=== PATIENT | male | born 1975 | race Caucasian/White ===

== ENCOUNTER 2018-12-14 18:26 | Observation (INO) | payer OTHER ==
[2018-12-14 21:02] LABS: Basophils # (A) 0.1 k/uL (0-0.2); Basophils % (A) 1 %; Eosinophils # (A) 0.4 k/uL (0-0.7); Eosinophils % (A) 4 %; HCT 42.2 % (39.0-53.0); HGB 13.4 gm/dL (13.0-17.5); Lymphocytes # (A) 2.1 k/uL (1.0-4.8); Lymphocytes % (A) 20 %; MCH 27.9 pg (25.0-35.0); MCHC 31.8 g/dL (31.0-37.0); MCV 87.9 fL (80.0-100.0); Mean Platelet Volume 6.6; Monocytes # (A) 0.6 k/uL (0-1.0); Monocytes % (A) 6 %; Neutrophils # (A) 7.3 k/uL (1.3-7.7); Neutrophils % (A) 68 %; Platelet Count 238 k/uL (150-450); RDW 14.1 % (11.5-15.5); WBC 10.8 k/uL (3.8-10.6)
[2018-12-14 21:11] LABS: INR 0.9 (<1.2); Partial Thromboplastin Time 24.9 sec (22.0-30.0); Prothrombin Time 9.5 sec (9.0-12.0)
[2018-12-14 21:14] LABS: African American GFR (CKD) >90 (>60 ml/min/1.73 sqM); Anion Gap 11 mmol/L; Blood Urea Nitrogen 21 mg/dL (9-20); Calcium 9.4 mg/dL (8.4-10.2); Carbon Dioxide 26 mmol/L (22-30); Chloride 103 mmol/L (98-107); Glucose 99 mg/dL (74-99); Potassium 4.5 mmol/L (3.5-5.1); Sodium 140 mmol/L (137-145)
--- NOTE | 2018-12-14 21:43 | US ---
EXAMINATION TYPE: US venous doppler duplex LE LT DATE OF EXAM: 12/14/2018 8:27 PM COMPARISON: NONE CLINICAL HISTORY: hx DVT/calf swelling pain. SIDE PERFORMED: Left TECHNIQUE: The lower extremity deep venous system is examined utilizing real time linear array sonog soren with graded compression, doppler sonography and color-flow sonography. VESSELS IMAGED: External Iliac Vein (EIV) Common Femoral Vein Deep Femoral Vein Greater Saphenous Vein * Femoral Vein Popliteal Vein Small Saphenous Vein * Proximal Calf Veins (* superficial vessels) Left Leg: Positive for DVT starting at the proximal femoral vein and extending through the calf vein s. IMPRESSION: There is acute deep venous thrombosis in the femoral vein extending into the popliteal an d calf veins.
--- NOTE | 2018-12-14 21:47 | ED ---
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 Patinet states 3 days ago he had calf swelling, pain that fel like a emerita horse in the left posterior calf. Patient states the swelling increased after riding in a vehicle for 9 hours. Patient states he has had a previous DVT as well as a pulmonary embolism when he was being treated for his active testicular cancer with metastasis and presented to the emergency department for concern for recurrent deep venous thrombosis. Patient denies any coolness spell or loss of sensation or pain out of proportion of the left lower extremity. Patient denies any fever or rashes or any other associated symptoms denies any chest pain shortness of b reath heart palpitations or symptoms consistent when he had the previous cardiopulmonary embolism. Patient states his only symptom is left calf pain and swelling. Remaining review of systems negative upon arrival patient appears well no signs of respiratory distress heart rate within acceptable limits no out of proportion tachycardia. Patient is not hypoxic. She and laboratory. (Lissette Motley) - Related Data Home Medications Medication Instructions Recorded Confirmed Desmopressin [Ddavp] 0.4 mg PO BID 12/14/18 12/14/18 Levothyroxine Sodium [Synthroid] 150 mcg PO DAILY 12/14/18 12/14/18 Magnesium Oxide 400 mg PO HS 12/14/18 12/14/18 Multivitamins, Thera [Multivitamin 1 tab PO DAILY 12/14/18 12/14/18 (formulary)] predniSONE 4 mg PO DAILY 12/14/18 12/14/18 Allergies Allergy/AdvReac Type Severity Reaction Status Date / Time promethazine [From Phenergan] Allergy Unknown Verified 12/14/18 21:33 Review of Systems ROS Other: All systems not noted in ROS Statement are negative. <Lissette Motley - Last Filed: 12/14/18 23:52> ROS Other: All systems not noted in ROS Statement are negative. <Roberta Martines Leilani - Last Filed: 12/15/18 06:07> ROS Statement: Those systems with pertinent positive or pertinent negative responses have been documented in the HPI. Past Medical History Past Medical History: Cancer, Thyroid Disorder Additional Past Medical History / Comment(s): brain ca Additional Past Surgical History / Comment(s): brain, chest, knee Smoking Status: Never smoker Past Alcohol Use History: None Reported Past Drug Use History: None Reported <Lissette Motley - Last Filed: 12/14/18 23:52> General Exam Limitations: no limitations <Lissette Motley - Last Filed: 12/14/18 23:52> - General Exam Comments Initial Comments: General: The patient is awake and alert, in no distress, and does not appear acutely ill. Eye: Pupils are equal, round and reactive to light, extra-ocular movements are intact. No nystagmus. There is normal conjunctiva bilaterally. No signs of icterus. Ears, nose, mouth and throat: There are moist mucous membranes and no oral lesions. Neck: The neck is supple, there is no tenderness or JVD. Cardiovascular: There is a regular rate and rhythm. No murmur, rub or gallop is appreciated. Respiratory: Lungs are clear to auscultation, respirations are non-labored, breath sounds are equal. No wheezes, stridor, rales, or rhonchi. Musculoskeletal: Upon inspection the cast bilaterally there is increased circumference of diameter of the left calf in comparison the right . Patient is positive Lynda on the left negative Homans on the right. Patient has full sensation of the extremities bilaterally equal. No pain out of proportion. Patient does have palpable tenderness of the left posterior calf. No palpable masses. No palpable redness or signs of skin changes. +2 dorsalis pedis pulses bilaterally. N Neurological: A&O x 3. CN II-XII intact grossly, There are no obvious motor or sensory deficits. Coordination appears grossly intact. Speech is normal. Skin: Skin is warm and dry and no rashes or lesions are noted. Psychiatric: Cooperative, appropriate mood & affect, normal judgment. (Lissette Motley) Course Vital Signs 12/14/18 12/14/18 12/14/18 19:19 21:55 23:25 Temperature 97.9 F 97.0 F L 99.1 F Pulse Rate 83 74 80 Respiratory 18 18 17 Rate Blood Pressure 117/68 125/85 108/68 O2 Sat by Pulse 97 97 98 Oximetry Medical Decision Making - Lab Data Result diagrams: 12/14/18 20:35 12/14/18 20:35 <Lissette Motley - Last Filed: 12/14/18 23:52> - Lab Data Result diagrams: 12/15/18 03:51 12/14/18 20:35 <Roberta Martines - Last Filed: 12/15/18 06:07> - Medical Decision Making Appearing 43-year-old male with history of cancer, DVT, pulmonary embolism on no current anticoagulation regimen presents emergency department for possible deep venous thrombosis. Patient has had left calf discomfort for 3 days. Recent travel. Patient's ultrasound revealed positive for extensive left lower extremity DVT. Given the extent of the blood clot patient will be admitted for high intensity heparin. Patient is agreeable to admission. Attending provider Dr. Martines spoke with the admitting provider Dr. Horvath who accepted patient's admission. Patient has no out of proportion tachycardia, hypoxia complaints of chest pain. Inspiration or clinical findings consistent with pulmonary embolism. Patient will be monitored closely. Patient transferred to the floor in stable condition appearing well. She denied any melanotic or bloody stools prior to initiation of heparin. No further orders from my attending provider no admitting provider. Dr Martines did evaluate patient in person. (Lissette Motley) % And evaluated patient. Given the extent of DVT do feel he warrants admission to the hospital for anticoagulation and further evaluation. Patient care was discussed with Dr. Alfaro who agrees with this plan. (Roberta Martines) - Lab Data Lab Results 12/14/18 12/14/18 12/14/18 Range/Units 20:35 20:35 20:35 WBC 10.8 H (3.8-10.6) k/uL RBC 4.80 (4.30-5.90) m/uL Hgb 13.4 (13.0-17.5) gm/dL Hct 42.2 (39.0-53.0) % MCV 87.9 (80.0-100.0) fL MCH 27.9 (25.0-35.0) pg MCHC 31.8 (31.0-37.0) g/dL RDW 14.1 (11.5-15.5) % Plt Count 238 (150-450) k/uL Neutrophils % 68 % Lymphocytes % 20 % Monocytes % 6 % Eosinophils % 4 % Basophils % 1 % Neutrophils # 7.3 (1.3-7.7) k/uL Lymphocytes # 2.1 (1.0-4.8) k/uL Monocytes # 0.6 (0-1.0) k/uL Eosinophils # 0.4 (0-0.7) k/uL Basophils # 0.1 (0-0.2) k/uL PT 9.5 (9.0-12.0) sec INR 0.9 (<1.2) APTT 24.9 (22.0-30.0) sec Sodium 140 (137-145) mmol/L Potassium 4.5 (3.5-5.1) mmol/L Chloride 103 (98-107) mmol/L Carbon Dioxide 26 (22-30) mmol/L Anion Gap 11 mmol/L BUN 21 H (9-20) mg/dL Creatinine 1.03 (0.66-1.25) mg/dL Est GFR (CKD-EPI)AfAm >90 (>60 ml/min/1.73 sqM) Est GFR (CKD-EPI)NonAf >90 (>60 ml/min/1.73 sqM) Glucose 99 (74-99) mg/dL Calcium 9.4 (8.4-10.2) mg/dL Disposition Is patient prescribed a controlled substance at d/c from ED?: No Time of Disposition: 22:05 Decision to Admit Reason: Admit from EC Decision Date: 12/14/18 Decision Time: 22:05 <Lissette Motley - Last Filed: 12/14/18 23:52> <Roberta Martines P - Last Filed: 12/15/18 06:07> Clinical Impression: Femoral DVT (deep venous thrombosis), Popliteal DVT (deep venous thrombosis), Left leg swelling, Pain of left calf, Hx of testicular cancer Disposition: ADMITTED IP TO THIS HOSP Condition: Stable
[2018-12-14] MEDS ORDERED: HEPARIN SODIUM,PORCINE 5,000 UNIT/ML 1 ML VIAL IV PRN (21:57)
[2018-12-14] MEDS ORDERED: HEPARIN SODIUM,PORCINE 10,000 UNIT/ML 1 ML VIAL IV ONE (21:57)
[2018-12-14] MEDS ORDERED: HEPARIN SOD,PORK IN 0.45% NACL 25,000 UNIT in 0.45% NACL 1 250ML.BAG IV SCH (22:00)
[2018-12-14] MEDS ORDERED: NALOXONE 0.4 MG/ML 1 ML VIAL IV PRN (22:00)
[2018-12-14] MEDS ORDERED: SODIUM CHLORIDE 0.9% 1,000 ML IV SCH (22:00)
--- NOTE | 2018-12-14 23:36 | P.HPIM ---
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 Apparently the patient lives [place] 9 hours here to [place] on business and arrived earlier today, patient reports his symptoms began prior to his travel. He reports the pain as 3 out of 10 he also reports some swelling denies any redness or subjective fevers chills or night sweats. The patient denies any shortness of breath or pleuritic chest discomfort. The patient denies any vision changes or headaches. He reports that he last had a surveillance CT of his head in the spring of this year and that was apparently clear. In the ER the patient had a workup with pretty normal labs with the exception of elevated WBC count at 10.8 and BUN of 21. Left lower extremity Doppler was positive for DVT starting of the proximal femoral vein and extending through the calf veins. Patient was started on heparin drip per protocol and recommended for admission for acute left lower extremity DVT Review of Systems pertinent positives per HPI all other review of systems was negative Past Medical History Past Medical History: Cancer, Thyroid Disorder Additional Past Medical History / Comment(s): brain ca Additional Past Surgical History / Comment(s): brain, chest, knee Smoking Status: Never smoker Past Alcohol Use History: None Reported Past Drug Use History: None Reported Medications and Allergies Home Medications Medication Instructions Recorded Confirmed Type Desmopressin [Ddavp] 0.4 mg PO BID 12/14/18 12/14/18 History Levothyroxine Sodium [Synthroid] 150 mcg PO DAILY 12/14/18 12/14/18 History Magnesium Oxide 400 mg PO HS 12/14/18 12/14/18 History Multivitamins, Thera [Multivitamin 1 tab PO DAILY 12/14/18 12/14/18 History (formulary)] predniSONE 4 mg PO DAILY 12/14/18 12/14/18 History Allergies Allergy/AdvReac Type Severity Reaction Status Date / Time promethazine [From Phenergan] Allergy Unknown Verified 12/14/18 21:33 Physical Exam Vitals: Vital Signs Temp Pulse Resp BP Pulse Ox 12/14/18 21:55 97.0 F L 74 18 125/85 97 12/14/18 19:19 97.9 F 83 18 117/68 97 Intake and Output 12/14/18 12/14/18 12/15/18 14:59 22:59 06:59 Other: Weight 108.862 kg Constitutional: No acute distress, conversant, pleasant Eyes: Anicteric sclerae, moist conjunctiva, no lid-lag, PERRLA ENMT: NC/AT,Oropharynx clear, no erythema, exudates Neck:Supple, FROM, no masses, or JVD, No carotid bruits; No thyromegaly Lungs: Clear to auscultation, Clear to percussion, Normal respiratory effort, no accessory muscle use Cardiovascular: Heart regular in rate and rhythm, No murmurs, gallops, or rubs no peripheral edema Abdominal: Soft Nontender, nom distended, no guarding, no rebound or rigidity, Normoactive bowel sounds No hepatomegaly, No splenomegaly, No palpable mass No abdominal wall hernia noted Skin: Normal temperature, tone, texture, turgor, No induration No subcutaneous nodules, No rash, lesions, No ulcers Extremities: Positive Homans on the left lower extremity, neurovascularly intact, noted swelling no erythema Psychiatric: Alert and oriented to person, place and time, Appropriate affect Intact judgement Neuro: Muscles Strength 5/5 in all 4 extremities, Sensation to light touch conrad ssly present throughout, Cranial nerves II-XII grossly intact. No focal sensory deficits Results CBC & Chem 7: 12/14/18 20:35 12/14/18 20:35 Labs: Abnormal Lab Results - Last 24 Hours (Table) 12/14/18 12/14/18 Range/Units 20:35 20:35 WBC 10.8 H (3.8-10.6) k/uL BUN 21 H (9-20) mg/dL Assessment and Plan (1) Deep vein thrombosis (DVT) of left lower extremity Current Visit: Yes Status: Acute Code(s): I82.402 - ACUTE EMBOLISM AND THOMBOS UNSP DEEP VEINS OF L LOW EXTREM SNOMED Code(s): 341612873 (2) Diabetes insipidus Current Visit: Yes Status: Acute Code(s): E23.2 - DIABETES INSIPIDUS SNOMED Code(s): 63958361 (3) Hypothyroidism Current Visit: Yes Status: Acute Code(s): E03.9 - HYPOTHYROIDISM, UNSPECIFIED SNOMED Code(s): 32739688 (4) History of brain tumor Current Visit: Yes Status: Acute Code(s): Z87.898 - PERSONAL HISTORY OF OTHER SPECIFIED CONDITIONS SNOMED Code(s): 254676630 Plan: The patient is admitted in observation status anticipate less than 2 midnight stay with acute left lower extremity DVT, the patient reports a history of prior DVT in 2000 at which time he was also diagnosed with brain cancer. The patient reported to have been treated with Coumadin at that time. Ultrasound performed confirms acute DVT on the left in the femoral vein extending to the popliteal calf veins, patient started on heparin drip per protocol. We'll plan to trans ition to the patient to [facility] tomorrow. He is continue his home medications. Currently medically stable continue to follow his clinical course. CODE STATUS: Full code Anticipated discharge: 1-[address]: Home Discussed plan of care with: Patient/ER physician Time with Patient: Greater than 30
[2018-12-15] MEDS ORDERED: MAGNESIUM OXIDE 400 MG TAB PO SCH ×2 (01:00→21:00)
[2018-12-15] MEDS: DESMOPRESSIN 0.2 MG TAB PO SCH ×2 (01:17→09:29)
[2018-12-15 04:03] LABS: Basophils # (A) 0.1 k/uL (0-0.2); Basophils % (A) 1 %; Eosinophils # (A) 0.4 k/uL (0-0.7); Eosinophils % (A) 5 %; HCT 40.5 % (39.0-53.0); HGB 12.9 gm/dL (13.0-17.5); Lymphocytes % (A) 23 %; MCH 28.4 pg (25.0-35.0); MCHC 31.9 g/dL (31.0-37.0); MCV 88.9 fL (80.0-100.0); Mean Platelet Volume 6.7; Monocytes # (A) 0.5 k/uL (0-1.0); Monocytes % (A) 6 %; Neutrophils # (A) 5.8 k/uL (1.3-7.7); Neutrophils % (A) 64 %; Platelet Count 220 k/uL (150-450); RBC 4.56 m/uL (4.30-5.90); RDW 14.3 % (11.5-15.5)
[2018-12-15] MEDS ORDERED: LEVOTHYROXINE 75 MCG TAB PO SCH (06:30)
[2018-12-15] MEDS ORDERED: MULTIVITAMINS, THERA 1 EACH TAB PO SCH (09:00)
[2018-12-15] MEDS ORDERED: DESMOPRESSIN 0.2 MG TAB PO SCH (09:00)
[2018-12-15] MEDS ORDERED: predniSONE 1 MG TAB PO SCH (09:00)
[2018-12-15 09:33] VITALS: BP 116/78; PULSE 85; RESP 16; TEMP 99.2
[2018-12-15] MEDS ORDERED: APIXABAN 5 MG TAB PO SCH (12:30)
--- NOTE | 2018-12-15 21:47 | P.DS ---
Providers Date of admission: 12/14/18 23:18 Expected date of discharge: 12/15/18 Attending physician: Porfirio Alfaro MD Primary care physician: Physician Nonstaff Hospital Course: Discharge Diagnosis: Acute left lower extremity DVT Leukocytosis, reactive History of testicular cancer with metastases to the brain Hypothyroidism Diabetes insipidus Hospital Course: Patient is a 43-year-old male past medical history of recurrent testicular cancer of the hypothalamus and cerebellum with rate he brain surgeries, hypothyroidism, diabetes insipidus, and prior DVT during cancer diagnosis who presented to the emergency department after a 9 hour car ride from [place] to visit his grandmother. He developed right lower extremity swelling. In the ER he underwent an extensive evaluation. On arrival his vital signs within normal limits. He has slightly elevated white blood cell count. Ultrasound revealed an acute left lower extremity DVT from the proximal femoral vein. The calf veins. He initially started on heparin drip. He was transitioned to Eliquis and provided a 1 month prescription for this. We discussed the importance of following up with his primary care physician at the [facility] in [place]. I've recommended a minimum of 6 months of anticoagulation. I suggested that he should see hematology/oncology for further evaluation of need for prolonged anticoagulation as this is his second DVT. He also should have follow-up with his history of cancer and recurrent DVT, though this is provoked secondary to his 9 hour car ride. He had no signs or symptoms of bleeding. I verbal education on the signs to look for for bleeding. I've also asked him to avoid any contact sports, extreme sports, or things that'll increase his risk of head injury. Patient is aware and is in agreement. I also suggested wearing compression stockings after his acute episode is end and prevent post-thrombotic syndrome. Patient seen and examined at bedside. Pain is improved, swelling improved, able to ambulate. Denies any chest pain, pleuritic chest pain, shortness of breath Vital signs reviewed and stable. General: non toxic, no distress, appears at stated age Derm: warm, dry Head: atraumatic, normocephalic, symmetric Eyes: EOMI, no lid lag, anicteric sclera Mouth: no lip lesion, mucus membranes moist Cardiovascular: S1S2 reg, no murmur, positive posterior tibial pulse bilateral, Lungs: CTA bilateral, no rhonchi, no rales , no accessory muscle use Abdominal: soft, nontender to palpation, no guarding, no appreciable organomegaly Ext: no gross muscle atrophy, 1+ nonpitting edema left lower extremity, no contractures Neuro: CN II-XI grossly intact, no focal neuro deficits Psych: Alert, oriented, appropriate affect A total of 25 minutes of time were spent preparing this complex discharge summary . Patient Condition at Discharge: Stable Plan - Discharge Summary Discharge Rx Participant: Yes New Discharge Prescriptions: New Apixaban [Eliquis Starter Pack (for VTE)] 0 mg PO DIRECTED 30 Days #1 pack Continue RX: Multivitamins, Thera [Multivitamin (formulary)] 1 tab PO DAILY RX: Desmopressin [Ddavp] 0.4 mg PO BID RX: predniSONE 4 mg PO DAILY RX: Levothyroxine Sodium [Synthroid] 150 mcg PO DAILY RX: Magnesium Oxide 400 mg PO HS Discharge Medication List RX: Desmopressin [Ddavp] 0.4 mg PO BID 12/14/18 [History] RX: Levothyroxine Sodium [Synthroid] 150 mcg PO DAILY 12/14/18 [History] RX: Magnesium Oxide 400 mg PO HS 12/14/18 [History] RX: Multivitamins, Thera [Multivitamin (formulary)] 1 tab PO DAILY 12/14/18 [History] RX: predniSONE 4 mg PO DAILY 12/14/18 [History] Apixaban [Eliquis Starter Pack (for VTE)] 0 mg PO DIRECTED 30 Days #1 pack 12/15/18 [Rx] Follow up Appointment(s)/Referral(s): Nonstaff,Physician [Primary Care Provider] - 1-2 days Patient Instructions/Handouts: Deep Vein Thrombosis (DC) Activity/Diet/Wound Care/Special Instructions: Activity: As tolerated, avoid contact/ extreme sports, avoid anything that could lead to head injury Diet: regular Special Instructions: you will need eliquis for a minimum of 6 months, would recommend follow-up with hematology/ oncology to see if need for continue anticoagulation at that point given that this is your second blood clot. Discharge Disposition: HOME SELF-CARE
== END 2018-12-15 13:45 | disposition home or self-care (01) ==
LOC: EC 18:26 → 4SSUR 23:18
PROVIDERS: ADMIT Family Medicine; ATTEND Family Medicine
DX: I82.412 Acute embolism and thrombosis of left femoral vein (principal); I82.4Z2 Acute embolism and thrombosis of unspecified deep veins of left distal lower extremity; I82.432 Acute embolism and thrombosis of left popliteal vein; D72.829 Elevated white blood cell count, unspecified; E23.2 Diabetes insipidus; E03.9 Hypothyroidism, unspecified; Z85.47 Personal history of malignant neoplasm of testis; Z85.841 Personal history of malignant neoplasm of brain; Z86.718 Personal history of other venous thrombosis and embolism; Z86.711 Personal history of pulmonary embolism; Z79.899 Other long term (current) drug therapy; Z79.890 Hormone replacement therapy; Z79.52 Long term (current) use of systemic steroids; Z88.8 Allergy status to other drugs, medicaments and biological substances
CPT/HCPCS: 96366 ×2; 96376; 96365; 99284; 36415; 80048; 85025 ×2; 85610; 85730 ×2; 93971; G0378 ×2; J1644 ×2; J7512